=== PATIENT | female | born 1980 | race Caucasian/White ===

== ENCOUNTER 2017-04-14 08:19 | Day surgery (SDC) | payer BC, MEDICAID ==
[~2017-04-14 08:19] MED LIST: Buffered Lidocaine 0.9% SYRIN* 5 ML/SYR SYRINGE INTRADERM ONE; Scopolamine 1.5 mg* PATCH TRANSDERM ONE; Sodium Citrate/Citric Acid* 15 ML UDC PO ONE
[2017-04-14] MEDS ORDERED: Scopolamine 1.5 mg* PATCH ONE (08:37)
[2017-04-14] MEDS ORDERED: Sodium Citrate/Citric Acid* 15 ML UDC ONE (08:38)
[2017-04-14] MEDS ORDERED: BSS OPTH.SOL* BTL ONE (08:58)
[2017-04-14] MEDS ORDERED: Tetracaine 0.5% OPTH.SOL 15ML* BTL ONE (08:58)
[2017-04-14] MEDS ORDERED: Phenylephrine 2.5% OPTH.SOL* 2 ML BTL ONE (09:00)
[2017-04-14] MEDS ORDERED: Povidone Iodine 5% OPTH* 30 ML BTL ONE (09:08)
[2017-04-14] MEDS ORDERED: fentaNYL* 50 MCG/ML 2 ML VIAL (100 MCG VIAL) ONE (09:09)
[2017-04-14] MEDS ORDERED: Ondansetron INJ* 2 MG/ML VIAL ONE (09:10)
[2017-04-14] MEDS ORDERED: Lidocaine 2% PF * 5 ML VIAL ONE (09:10)
[2017-04-14] MEDS ORDERED: Dexamethasone IV* 4 MG/ML 1 ML (4 MG) ONE (09:10)
[2017-04-14] MEDS ORDERED: Propofol* 10 MG/ML 20 ML BTL IV PUSH ONE (09:10)
[2017-04-14] MEDS ORDERED: DiMENhydriNATE IV* 50 MG/ML VIAL IV PUSH PRN (09:54)
[2017-04-14] MEDS ORDERED: fentaNYL* 50 MCG/ML 2 ML VIAL (100 MCG VIAL) IV PRN (09:54)
[2017-04-14] MEDS ORDERED: Acetaminophen TAB* 325 MG PO PRN (10:33)
[2017-04-14] MEDS ORDERED: DiMENhydriNATE IV* 50 MG/ML VIAL ONE (10:38)
[2017-04-14] MEDS ORDERED: Acetaminophen TAB* 325 MG ONE (10:39)
[2017-04-14 11:08] VITALS: BP 118/76
--- NOTE | 2017-04-14 22:42 | OP ---
DATE OF OPERATION: 04/14/17 - [facility] DATE OF : 80 SURGEON: Shon Chiu MD REJECTED ITEMS CLERK: None. ANESTHESIOLOGIST: Camden Young MD ANESTHESIA: General. 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 OPERATIVE PROCEDURE: Recess each lateral rectus muscle 8.0 mm. COMPLICATIONS: None. BLOOD LOSS: Minimal. DESCRIPTION OF PROCEDURE: The patient was brought to the operating room and received general anesthesia without any complications. A drops of tetracaine and a drop of phenylephrine were placed in the each eye. The patient was prepped and draped in the usual sterile fashion for ophthalmic surgery. Attention was directed to the left eye, where a speculum was placed. Forced duction was performed and found slight restriction to abduction. Examination of the conjunctiva revealed nasal conjunctival scarring from prior eye muscle surgery. The eye was grasped inferotemporal quadrant near the limbus and brought to the superior medial gaze. An inferomedial fornix incision was created with a Luly scissor through the conjunctiva. Tenon's capsule was violated and the lateral rectus muscle was isolated on a Andrew muscle hook. The conjunctiva was reflected over the surface of the muscle and the check ligament was opened. The muscle was cleaned with sharp and blunt dissection. A double-arm 6-0 Vicryl suture was woven to the muscle and locked at either end near the insertion. The muscle was disinserted from the globe. A angy was made on the sclera, 8.0 mm posterior to the original insertion. The muscle was reassessed to this point and tied securely. Hemostasis was achieved by cauterization at the original insertion site. Locking forceps, which had been used to hold the original insertion site, were released. The muscle was inspected and found to be in good position with no active bleeding. The conjunctiva was then closed with interrupted 6-0 gut sutures. The speculum was removed and placed in the contralateral eye. Here, forced ductions again showed slight restriction to abduction. Observation of the conjunctiva again showed nasal scarring consistent with prior consistent with prior eye muscle surgery. The case proceed in a similar fashion to the other eye. The eye was brought into the superomedial gaze and inferotemporal fornix incision was created with a Luly scissor. Tenon's capsule was violated. The lateral rectus muscle was isolated on a Andrew muscle hook. The check ligament was opened. The muscle was cleaned with sharp blunt dissection near its insertion. A double arm 6-0 Vicryl suture was woven into the muscle near its insertion and locked at either end. The muscle was disinserted from the globe with Luly scissors. The original muscle insertion was grasped with interrupted locking forceps. Hemostasis was achieved with gentle cauterization at the original insertion sit. A angy was made on the sclera, 8.0 mm posterior to the original insertion with a caliper. The muscle was reassessed at this point and the sutures were tied securely. The muscle was inspected and found to be in good position with no active bleeding. The locking forceps were removed. The conjunctiva was closed with interrupted 6-0 gut sutures. At the end of the case , topical Tetracaine followed by Maxitrol ointment was placed on the surface of the each eye. The patient was awakened uneventfully and sent to the recovery room in stable condition with postoperative instructions and followup appointment given. [id number]/[facility] #: [id number] JILLIAN
[2017-04-17] MEDS ORDERED: Scopolomine PATCH Remove* 1 NOTE MISC PATCH OFF ONE (06:00)
== END 2017-04-14 11:33 | disposition home or self-care (01) ==
LOC: OREAST 08:19
PROVIDERS: ATTEND Ophthalmology
DX: H50.15 Alternating exotropia (principal); R01.1 Cardiac murmur, unspecified; M32.9 Systemic lupus erythematosus, unspecified; M79.7 Fibromyalgia
CPT/HCPCS: 81025; A9270-GY; J1100; J1240; J2405; J2704; J3010